=== PATIENT | female | born 1980 | race Caucasian/White ===

== ENCOUNTER 2016-07-05 19:54 | Emergency (ER) | payer OTHER ==
[2016-07-05] MEDS ORDERED: BIOTIN2500 MCG PO (20:30)
[2016-07-05] MEDS ORDERED: MULTI-DAY VITA1 EACH PO (20:31)
--- NOTE | 2016-07-05 20:34 | ED CARDIAC/CP/PALPITATIONS ---
History of Present Illness General Chief Complaint: Chest Pain Stated Complaint: " CP SINCE WEDNESDAY,RT ARM TINGLING" Source: patient Exam Limitations: no limitations Vital Signs & Intake/Output Vital Signs & Intake/Output Vital Signs Date Time Temp Pulse Resp B/P Pulse O2 O2 Flow FiO2 Ox Delivery Rate 07/05 2245 97.4 75 18 114/63 98 Room Air 07/05 2004 98.1 74 16 132/82 99 Room Air Allergies Coded Allergies: NO KNOWN ALLERGIES (07/05/16) Triage Note: TRIAGE; PT TO ED C/O CHEST HEAVINESS SINCE WEDNESDAY. STATES TODAY STARTED WITH RT ARM TINGLING. PT STATES THAT HER SON JUST GOT OVER WALKING PNEUMONIA AND SHE HAD A MASSAGE YESTERDAY, SO UNSURE IF THEY HIT A NERVE OR NOT. DENIES ANY DIFFICULTY BREATHING RIGHT NOW. Triage Nurses Notes Reviewed? yes : No Patient currently breastfeeds: No HPI: This patient is a 35-year-old female who presented to the emergency department today accompanied by her significant other for evaluation of chest pain. The patient reported that the pain began on with intermittent burning sensation, "between my breasts." The patient reported that the pain has become more frequent, coming approximately every hour and lasting approximately 15 or 20 minutes. She reported that the pain is nonradiating and was in no palliative or provoking factors. The patient reported that today she started having some tingling down her right arm. No numbness. The patient did report that she got a massage yesterday and wonders if the masseuse hit a nerve. The patient reported that her son was recently diagnosed with walking pneumonia, "in his blood." She reported that she was feeling nauseous this evening at dinner. The patient reported that she feels like someone is, "sitting on her chest." She denied any fevers, chills, abdominal pain, vomiting, constipation, or diarrhea. The patient did report that she has a lot of stress and anxiety in her life right now. She also reported that her father from a heart attack when he was 40 years old. (NADIA HERCULES,JERE) Reconcile Medications Biotin (Unknown Strength) CAPSULE (Unknown Dose) PO DAILY SUPPLEMENT ( Reported) Cyclobenzaprine HCl 5 MG TABLET 1 TAB PO BID PRN MUSCLE SPASMS Multivitamin (Multi-Day Vitamins) 1 EACH TABLET 1 TAB PO DAILY SUPPLEMENT ( Reported) (HANSA CALVERT,IRENE Ramey) Past History Travel History Traveled to [place] past 21 day No Medical History Any Pertinent Medical History? see below for history Surgical History Surgical History: non-contributory Psychosocial History What is your primary language [place]an Tobacco Use: Never used Family History Hx Contributory? No (JERE ZUNIGA PA-C) Review of Systems Review of Systems Constitutional: Reports: no symptoms. EENTM: Reports: no symptoms. Respiratory: Reports: see HPI. Cardiovascular: Reports: see HPI. GI: Reports: see HPI. Genitourinary: Reports: no symptoms. Musculoskeletal: Reports: no symptoms. Skin: Reports: no symptoms. Neurological/Psychological: Reports: see HPI. All Other Systems: Reviewed and Negative (JERE ZUNIGA PA-C) Physical Exam Physical Exam Cardiovascular: regular rate/rhythm, normal peripheral pulses, NO MURMURS, RUBS, OR GALLOPS. nO CAROTID BRUITS APPRECIATED. nO jvd Comments: Well-developed well-nourished person in no acute distress HEENT: Normal EENT exam, head normocephalic, moist mucous membranes PERRLA bilaterally. EOMI bilaterally with no nystagmus Nose is atraumatic. Neck: Supple, no lymphadenopathy. No thyromegaly. No midline tenderness. Full range of motion Back: Normal gait Respiratory: Chest nontender. No respiratory distress. Speaking in full sentences. Lungs clear to auscultation bilaterally no wheezes, rales, or rhonchi. No diminished breath sounds Abdomen: Soft and nondistended. Normoactive bowel sounds. Tympanic to percussion in all 4 quadrants. No organomegaly. Nontender. No rebound or guarding. No peritoneal signs Extremity: No edema, no calf tenderness to palpation, normal and equal pulses. Neuro: Alert oriented x3, cranial nerves II through XII grossly intact. Skin: No appreciable rash on exposed skin, skin is warm and dry. Psych: Mood and affect is normal Core Measures ACS in differential dx? Yes Severe Sepsis Present: No Septic Shock Present: No (JERE ZUNIGA PA-C) Progress Differential Diagnosis: AMI, aortic dissection, atrial fibrillation, cholecystitis, CHF/pulm edema, costochondritis, hyperkalemia, hyperthyroid, hyperventilation, musculoskeletal pain, myocarditis, pancreatitis, pericarditis, pneumonia, pneumothorax, PSVT, pulmonary embolism, PUD/GERD, PVCs/PACs, unstable angina, GENERALIZED ANXIETY DISORDER Plan of Care: Orders Procedure Date/time Status TROPONIN LEVEL 07/05 2029 Complete HUMAN BETA HCG SCREEN 07/05 2029 Complete COMPREHENSIVE METABOLIC PANEL 07/05 2029 Complete CBC WITHOUT DIFFERENTIAL 07/05 2029 Complete EKG 07/05 1958 Active Laboratory Tests 07/05/162104: Anion Gap 9, Estimated GFR > 60, BUN/Creatinine Ratio 18.8, Glucose 96, Calcium 9.4, Total Bilirubin 0.6, AST 25, ALT 42, Alkaline Phosphatase 48, Troponin I < 0.01, Total Protein 6.9, Albumin 4.1, Globulin 2.8, Albumin/Globulin Ratio 1.5, Total Beta HCG NEGATIVE, CBC w Diff NO MAN DIFF REQ, RBC 4.46, MCV 86.2, MCH 29.2, RDW 13.0, MPV 8.5, Gran % 60.8, Lymphocytes % 32.5, Monocytes % 4.8, Eosinophils % 1.3, Basophils % 0.6, Absolute Granulocytes 4.0, Absolute Lymphocytes 2.1, Absolute Monocytes 0.3, Absolute Eosinophils 0.1, Absolute Basophils 0, PUBS MCHC 33.9 Diagnostic Imaging: Viewed by Me: Radiology Read. Discussed w/RAD: Radiology Read. Radiology Impression: PATIENT: GRAHAM AUGUSTINE PRESENT AGE: 35 PATIENT ACCOUNT NO: [id number] : 78 LOCATION: [facility] ORDERING PHYSICIAN: JERE ZUNIGA PA-C SERVICE DATE: 07/05/16 EXAM TYPE: RAD - XRY-CHEST XRAY, PA AND LATERAL EXAMINATION: XR CHEST CLINICAL INFORMATION: Chest pain. Assess for pneumonia. COMPARISON: None. TECHNIQUE: PA and lateral views of the chest were obtained. FINDINGS: The lungs are well expanded. No lobar consolidation, pleural effusion, pulmonary edema, or pneumothorax. No mediastinal widening. No acute osseous abnormalities. IMPRESSION: No acute pulmonary pathology demonstrated. No evidence of pneumonia. DICTATED BY: ESTEVAN ALDRIDGE MD DATE/TIME DICTATED:07/05/162243 CHIEF NURSING EXECUTIVE:ROMA DATE/TIME TRANSCRIBED:07/05/162243 CONFIDENTIAL, DO NOT COPY WITHOUT APPROPRIATE AUTHORIZATION. <Electronically signed in Other Vendor System> SIGNED BY: ESTEVAN ALDRIDGE MD 07/05/16 2250 Initial ED EKG: normal axis, normal intervals, normal p-waves, normal QRS complex, normal sinus rhythm, no ST T wave changes, 69 BPM Comments: This patient is PERC negative: heart rate less than 100. O2 saturation >95%. No hemoptysis. No unilateral leg swelling/calf pain. No prolonged immobilization/ recent surgery. No history of DVT or PE. Not on any exogenous estrogen. She is less than 50 years old. Based on protocol, no d-dimer necessary for PERC negative patient. 07/05/2016 10:38:25 PM: Discussed with this patient the option to get a second troponin level given her significant family history. There are still thinking about this. The second troponin and repeat EKG would be done at 3:05 AM. 07/05/2016 10:54:31 PM: No acute cardiopulmonary process identified on chest x- ray. Troponin level not elevated. EKG within normal limits. No increase in white blood cell count. This pain is likely musculoskeletal in nature or anxiety driven. I did discuss with this patient extensively her option to stay for a second troponin level to rule out any cardiac pathology. The patient is refusing at this time stating that she wants to go home. She does have a homogenizer operator where recommended that she call to schedule a follow-up appointment with as well as her primary care physician. Recommended that she return to the emergency department for any worsening symptoms or concerns. (JERE ZUNIGA PA-C) Departure Departure Disposition: HOME OR SELF CARE Condition: Stable Clinical Impression Primary Impression: Chest pain Qualifiers: Chest pain type: unspecified Qualified Code: R07.9 - Chest pain, unspecified Referrals: EJ LOMAX MD (PCP/Family) Additional Instructions: Take muscle relaxant as prescribed. You may take [id number] Motrin or Tylenol for pain. Rest. Avoid any strenuous activity or heavy lifting. Gentle stretching. Please call both your homogenizer operator and primary care physicians tomorrow to schedule follow-up appointment. Return to the emergency department for any worsening symptoms or concerns. Departure Forms: Customer Survey General Discharge Information Prescriptions: Current Visit Scripts Cyclobenzaprine HCl 1 TAB PO BID PRN MUSCLE SPASMS #10 TAB (JERE ZUNIGA PA-C) PA/TRANSITION ADVISOR Co-Sign Statement Statement: ED Attending supervision documentation- [] I saw and evaluated the patient. I have also reviewed all the pertinent lab results and diagnostic results. I agree with the findings and the plan of care as documented in the PA's/TRANSITION ADVISOR's documentation. [X] I have reviewed the ED Record and agree with the PA's/TRANSITION ADVISOR's documentation. [] Additions or exceptions (if any) to the PAs/TRANSITION ADVISOR's note and plan are summarized below: [] (HANSA CALVERT,IRENE Ramey) Critical Care Note Critical Care Note Critical Care Time: non-applicable (NADIA HERCULES,JERE)
[2016-07-05 21:17] LABS: ABSOLUTE BASOPHIL COUNT 0 /CUMM (0.0-0.2); ABSOLUTE EOSINOPHIL COUNT 0.1 /CUMM (0.0-0.7); ABSOLUTE LYMPH COUNT 2.1 /CUMM (1.2-3.4); ABSOLUTE MONOCYTE COUNT 0.3 /CUMM (0.10-0.60); BASOPHIL % 0.6 % (0.0-2.0); EOSINOPHIL % 1.3 % (0-5); GRANULOCYTE % 60.8 % (42.2-75.2); HEMATOCRIT 38.4 % (37-47); MEAN CORPUSCULAR HGB 29.2 PG (27.0-31.0); MEAN CORPUSCULAR HGB CONC 33.9 G/DL (33.0-37.0); MEAN CORPUSCULAR VOLUME 86.2 FL (81.0-99.0); MEAN PLATELET VOLUME 8.5 FL (7.4-10.4); PLATELET COUNT 190 /CUMM (130-400); RED BLOOD CELL CT 4.46 /CUMM (4.20-5.40); WHITE BLOOD CELL COUNT 6.5 /CUMM (4.8-10.8)
[2016-07-05 22:46] VITALS: BP 114/63
--- NOTE | 2016-07-05 22:50 | RADIOLOGY REPORT ---
EXAMINATION: XR CHEST CLINICAL INFORMATION: Chest pain. Assess for pneumonia. COMPARISON: None. TECHNIQUE: PA and lateral views of the chest were obtained. FINDINGS: The lungs are well expanded. No lobar consolidation, pleural effusion, pulmonary edema, or pneumothorax. No mediastinal widening. No acute osseous abnormalities. IMPRESSION: No acute pulmonary pathology demonstrated. No evidence of pneumonia.
[2016-07-05] MEDS ORDERED: CYCLOBENZAPRINE5 M2 PO (22:56)
== END 2016-07-05 23:32 ==
LOC: ERH 19:54
PROVIDERS: Physician Assistant
DX: R07.9 Chest pain, unspecified (principal)
CPT/HCPCS: 93005; 93010